=== PATIENT | female | born 2005 | race Two or more races ===

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

== ENCOUNTER 2025-02-25 09:31 | Emergency (ER) | payer MEDICAID ==
[~2025-02-25] VITALS: Ht 157.5 cm; Wt 63.6 kg
[~2025-02-25 09:31] MED LIST changes: +CEPH500C PO
[2025-02-25 10:12] VITALS: BP 136/100; PULSE 95; RESP 16; TEMP 98.3; O2SAT 97
[2025-02-25 10:49] LABS: Urine Bacteria FEW /hpf (None Seen); Urine Blood 2+ /uL (Negative); Urine Mucus FEW (None Seen); Urine Protein, UAD Negative (Negative); Urine Specific Gravity 1.007 (1.001-1.035); Urine Squamous Epithelial Cell FEW /hpf (<5); Urine Urobilinogen Normal (Negative); Urine WBC 3 /HPF (0-5); Urine pH 5.5 (5.0-9.0)
[2025-02-25 10:52] LABS: Urine Clarity Hazy (Clear); Urine Color Light-Yellow (Yellow)
[2025-02-25 12:16] LABS: Vaginal Bacteria Few; Vaginal Epithelial Cells Moderate
[2025-02-25 12:17] LABS: Vaginal Clue Cells None Seen; Vaginal Trichomonas Not Present
[2025-02-25] MEDS ORDERED: MET500T PO (12:37)
--- NOTE | 2025-02-25 12:37 | ED.PDOC ---
General HPI Comments 20 year old presents for possible UTI C/o mild dysuria associated with pruritus Last UTI five months ago. Denies fevers chills nausea vomiting diarrhea flank pain Chief Complaint: Urinary Time Seen by MD: 09:41 Primary Care Provider: unknown Reviewed notes: Nurses Notes, Medications, Allergies Allergies: Coded Allergies: Amoxicillin (Verified Allergy, Intermediate, RASH, 11/01/17) Home Meds Active Scripts Cephalexin Monohydrate (Cephalexin) 500 Mg Cap, 1 CAP PO QID for 5 Days, #20 CAP Prov:MATTHEW JJ PAC 03/14/24 Lidocaine (Anorectal) (Lidocaine 5%) 5 % Cre, 5 % EX DAILYP PRN for 30 Days, #30 PATCH 0 Refills Prov:ANDREA SYKES MESSAGE CLERK 02/29/24 Naproxen (NAPROSYN TABLET) 500 Mg Tb, 1 TAB PO BIDPC for 14 Days, #28 TAB 0 Refills Prov:ANDREA SYKES MESSAGE CLERK 02/29/24 Ibuprofen (Ibuprofen) 600 Mg Tab, 1 TAB PO TID, #30 TAB Prov:CODY SOLANO 02/25/24 Hydroxyzine HCl (Hydroxyzine Hydrochloride) 10 Mg Tab, 10 MG PO TID PRN, #30 TAB Prov:KAMAR HERNANDEZ NP 08/12/23 Methylprednisolone (Medrol Dosepak) 4 Mg Orestes, 4 MG PO UD, #21 TAB UAD Prov:ADELINA ROMANO MD 05/09/22 Diphenhydramine Hcl (Benadryl Allergy) 25 Mg Cap, 1 CAP PO BID for 3 Days, #10 CAP 1 Refill Prov:ADELINA ROMANO MD 05/09/22 Information Source: Patient Mode of Arrival: Ambulatory Past Medical History PAST MEDICAL HISTORY: Denies Surgical History: Denies all surgeries WHIP OPERATOR History: No Pertinent WHIP OPERATOR History Family History Family History: Reviewed,noncontributory to illness Social History Smoker: Non-Smoker Alcohol: Denies ETOH Use Drugs: Denies Drug Use Lives In: Home All Other Systems: Reviewed and Negative (per hpi) Physical Exam General Appearance: No Apparent Distress, Normal HEENT: Normal ENT Inspection, Pharynx Normal, TMs Normal Neck: Full Range of Motion, Non-Tender, Normal, Normal Inspection Respiratory: Chest Non-Tender, Lungs Clear, No Accessory Muscle Use, No Re spiratory Distress, Normal Breath Sounds Cardiovascular: No Edema, No JVD, No Murmur, No Gallop, Normal Peripheral Pulses, Regular Rate/Rhythm Breast Exam: Deferred Gastrointestinal: No Organomegaly, Non Tender, No Pulsatile Mass, Normal Bowel Sounds, Soft Genitalia: Deferred Pelvic: Deferred (declined) Rectal: Deferred Extremities: No calf tenderness, Normal capillary refill, Normal inspection, Normal range of motion, Non-tender, No pedal edema Musculoskeletal : Apperance: Normal Neurologic: Alert, software development analyst II-XII nml as Tested, No Motor Deficits, Normal Affect, Normal Mood, No Sensory Deficits Cerebellar Function: Normal Reflexes: Normal Skin: Dry, Normal Color, Warm Lymphatic: No Adenopathy Was a procedure done? Was a procedure done?: No Differential Diagnosis Kidney stone (Female): N/A Urinary Problem (Male): UTI, Other X-Ray, Labs, Meds, VS Vital Signs Date Time Temp Pulse Resp B/P (MAP) Pulse Ox O2 Delivery O2 Flow Rate FiO2 02/25/25 10:12 98.3 95 16 136/100 (112) 97 98.3 02/25/25 10:11 95 16 97 Room Air 02/25/25 09:39 98.3 95 16 136/100 (112) 97 98.3 Lab Test 02/25/25 10:35 02/25/25 09:38 Range/Units Vaginal WBC (Wet Prep) Moderate Vaginal RBC (Wet Prep) Many Vaginal Epithelial Cells (Wet Prep) Moderate Vaginal Bacteria (Wet Prep) Few Vaginal Trichomonas (Wet Prep) Not present Vaginal Yeast (Wet Prep) None seen Vaginal Clue Cells (Wet Prep) None seen Urine Color Light-yellow Yellow Urine Clarity Hazy H Clear Urine pH 5.5 5.0-9.0 Urine Specific Braxton 1.007 1.001-1.035 Urine Protein Negative Negative Urine Ketones Negative Negative Urine Blood 2+ H Negative /uL Urine Nitrite Negative Negative Urine Bilirubin Negative Negative Urine Urobilinogen Normal Negative mg/dL Urine Leukocyte Esterase Negative Negative /uL Urine RBC 182 0 - 4 /hpf Urine Microscopic WBC 3 0-5 /HPF Urine Squamous Epithelial Cells Few <5 /hpf Urine Bacteria Few H None Seen /hpf Urine Mucus Few None Seen Urine Glucose Normal Normal mg/dL Urine Test Negative Negative Chlamydia trachomatis ([facility]BORAH) Pending Neisseria gonorrhoeae ([place]B[facility]) Pending X-Ray, Labs, Meds, VS Comment female presents with vaginal itching Well appearing, vitals within normal limits, benign abdominal exam Concern for bacterial vaginosis vs less likely cervicitis or UTI. Labs remarkable for UA within normal limits, negative. Wet prep + for BV Will treat with flagyl F/u with PMD in 48 hours if symptoms persist. Knows to return for worsening symptoms, fever, continued symptoms, abdominal pain, dysuria, hematuria or any other concern Time of 1ST Reevaluation: 12:35 Reevaluation 1ST: Improved Patient Education/Counseling: Diagnosis, Treatment Family Education/Counseling: Diagnosis, Treatment Departure 1 Departure Time of Disposition: 12:36 Impression: Primary Impression: Bacterial vaginosis Disposition: HOME / SELF CARE / HOMELESS Condition: Stable e-Prescriptions Metronidazole (Metronidazole) 500 Mg Tab 500 MG PO BID for 7 Days, #14 TAB 0 Refills Prov: ANDREA SYKES MESSAGE CLERK 02/25/25 Critical Care Note Critical Care Time?: No Stability Stability form required: No Heart Score Heart Score: Heart Score Response (Comments) Value History N/A 0 EKG N/A 0 Age N/A 0 Risk Factors N/A 0 Troponin N/A 0 Total 0 ANDREA SYKES MESSAGE CLERK Feb 25, 2025 12:37
[2025-02-26 22:06] LABS: Chlamydia Trachomatis, NAA Negative (Negative); Neisseria gonorrhoeae, NAA Negative (Negative)
== END 2025-02-25 12:40 | disposition home or self-care (01) ==
LOC: ER 09:31
DX: N76.0 Acute vaginitis (principal); B96.89 Other specified bacterial agents as the cause of diseases classified elsewhere; Z88.0 Allergy status to penicillin; Z79.1 Long term (current) use of non-steroidal anti-inflammatories (NSAID)
CPT/HCPCS: 81001; 81025; 87210